=== PATIENT | male | born 1975 | race Caucasian/White ===

== ENCOUNTER 2022-03-01 15:07 | Emergency (ER) | payer OTHER, SELFPAY ==
--- NOTE | ~2022-03-01 | XR_ITS ---
EXAMINATION: XR finger 3rd LT min 2V DATE: 03/01/2022 15:24 INDICATION: Left hand third digit injury. TECHNIQUE: 4 views of left hand third digit were obtained. COMPARISON: Left hand radiographs 02/05/2013 FINDINGS: Bone alignment is normal. No acute fracture. There is an old healed fracture of diaphysis o f fourth metacarpal with 3 screws. 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 IMPRESSION: 1. No acute fracture. Reviewed, dictated and finalized at location E. IMPRESSION: 1. No acute fracture.
[2022-03-01 15:13] VITALS: BP 162/98; PULSE 92; RESP 16; TEMP 36.8; O2SAT 100
--- NOTE | 2022-03-01 15:53 | ED.GENADULT ---
HPI - General Adult General Chief complaint: Wound/Laceration Stated complaint: lt finger inj Source: patient Mode of arrival: ambulatory Limitations: no limitations History of Present Illness HPI narrative: Patient presents for evaluation of a wound to the third digit of his left hand. Using a router just prior to arrival when he sustained an avulsion injury. He believes his symptoms are limited to the soft tissues. He reports 3/10 pain in affected digit. No loss of ROM. No paresthesias. He is right hand dominant. He is not diabetic. He does not smoke. He has not tried any therapies to assist with his symptoms. Last tetanus within the past year. Related Data Home Medications Medication Instructions Recorded Confirmed ibuprofen 200 mg tablet 200 mg PO Q6H PRN 05/01/21 05/01/21 Allergies Allergy/AdvReac Type Severity Reaction Status Date / Time No Known Allergies Allergy Mild Verified 05/01/21 14:12 Review of Systems Review of Systems: CONSTITUTIONAL: Denies fever, chills, or sweats. EYES: Denies visual changes, redness, or discharge. ENT: Denies rhinorrhea, congestion, sore throat, or otalgia. CARDIOVASCULAR: Denies chest pain, palpitations, or edema. RESPIRATORY: Denies cough or dyspnea. GASTROINTESTINAL: Denies abdominal pain, nausea, vomiting, or diarrhea. GENITOURINARY: Denies dysuria or hematuria. SKIN: Reports wound to third digit of left hand. MUSCULOSKELETAL: Reports pain in third digit of left hand. NEUROLOGIC: Denies headache, numbness, dizziness, or weakness. PSYCHIATRIC: Denies anxiety or depression. [facility] Past Medical History Medical History Environmental allergies Family hx of prostate cancer Family History Family History Mother Family history of hypercholesterolemia Father Family history of hypercholesterolemia Other Cerebrovascular accident Family history of cardiovascular disease Family history of glaucoma Family history of sudden cardiac in sister Hypertension Malignant neoplasm of prostate Social History Social History Smoking status: Never smoker Alcohol intake: current Alcohol use details: socially but rare Substance use: never Living arrangements: with family Gender identity (if verbalized by the patient): Male Sexual Orientation (if Verbalized by the Patient): Straight or Heterosexual Spiritual care concerns: No Exam Narrative: GENERAL: Well-appearing, well-nourished, and in no acute distress. HEAD: Normocephalic, atraumatic. EYES: PERRLA and EOMI. ENT: Nares clear, no rhinorrhea or epistaxis. Mucous membranes moist. Oropharynx without tonsillar hypertrophy exudate or other lesions. Bilateral TMs pearly eddy nonbulging NECK: Supple. No adenopathy or masses. No carotid bruits or JVD CHEST: Clear to auscultation. No respiratory distress. No wheezes rales or rhonchi HEART: Regular rate and rhythm. No murmur heard. Normal peripheral pulses. ABDOMEN: Soft, nontender, nondistended, normal active bowel sounds. EXTREMITIES: Normal range of motion. No edema. SKIN: Approximately 2cm skin avulsion to palmar aspect of distal phalanx of 3rd digit of left hand. Wound bed is red. Bleeding controlled NEURO: No focal deficits. Alert and oriented x3. PSYCH: Normal mood and affect. Course Course Emergency Course: This is a 46-year-old male who presented with complaints of an injury to the third digit of his left hand. UTD on tetanus. X ray with no evidence of fracture or retained foreign body. Digital block was performed with 1% lidocaine without epinephrine. I dressed wound with xeroform,surgicel, another layer of Xeroform and tube gauze. He was provided patient with a splint. He tolerated process well. Advised on wound care. He declined analgesics while here and upon
== END 2022-03-01 15:55 | disposition home or self-care (01) ==
PROVIDERS: Emergency Provider Nurse Practitioner; PCP Family Medicine
DX: S61.203A Unspecified open wound of left middle finger without damage to nail, initial encounter (principal); X58.XXXA Exposure to other specified factors, initial encounter
CPT/HCPCS: 29130; 73140; 99213; G0463

== ENCOUNTER 2023-08-05 09:08 | Outpatient (CLI) | payer OTHER, SELFPAY ==
[2023-08-05 20:16] LABS: Prostate Specific Antigen 0.8 ng/mL (< OR = 4.0)
[2023-08-05 20:30] LABS: Vitamin D 25 Hydroxy 44.2 ng/mL
[2023-08-08 12:29] LABS: Testosterone Free 61.8 pg/mL (46.0-224.0); Testosterone Total 504 ng/dL (250-1100)
== END 2023-08-05 09:09 | disposition home or self-care (01) ==
LOC: ANHGOSHLAB 09:10
PROVIDERS: PCP Family Medicine; Visit Provider Nurse Practitioner Family
DX: R53.83 Other fatigue (principal); Z12.5 Encounter for screening for malignant neoplasm of prostate
CPT/HCPCS: 36415; 82306; 82607; 84153; 84402; 84403; 84443; G0103

== ENCOUNTER 2023-08-31 05:59 | Day surgery (SDC) | payer OTHER, SELFPAY ==
[2023-08-12 09:48] VITALS: BMI 29.5
[2023-08-31 06:26] VITALS: BP 151/106; PULSE 78; RESP 16; TEMP 36.6; O2SAT 95
--- NOTE | 2023-08-31 07:14 | WPDANESEPPF ---
Anes - Initial Pre Proc Eval Procedure: Operation Date: 08/31/23 07:30 Proposed Procedures p Screening Colonoscopy - Yogesh Nayak MD Date/Time: 08/31/23 07:14 Surgeon: Yogesh Nayak MD Pre Op Diagnosis: Neoplasm Screening Patient Data Age: 47 Gender: M Height: 1.78 m Weight: 93.5 kg Last Vital Signs Temp 36.6 C 08/31/23 06:26 Pulse 78 08/31/23 06:26 Resp 16 08/31/23 06:26 BP 151/106 H 08/31/23 06:26 Pulse Ox 95 08/31/23 06:26 O2 Del Method Room Air 08/31/23 06:26 Allergies Allergy/AdvReac Type Severity Reaction Status Date / Time No Known Allergies Allergy Mild Verified 08/31/23 06:27 Home Medications Medication Instructions Recorded Confirmed Type olopatadine 0.6 % nasal spray 2 spray intranasal Q12H #30.5 grams 08/05/23 08/31/23 Rx cetirizine 10 mg tablet (Zyrtec) 10 mg PO DAILY PRN Allergy Symptoms 08/14/23 08/31/23 History Patient hx anesthesia problems: none Family hx anesthesia problems: none Results Review: All pre-operative results and documents have been reviewed as part of the pre-operative evaluation. [facility] Past Medical History Medical History Environmental allergies Family hx of prostate cancer Family History Family History Mother Family history of hypercholesterolemia Father Family history of hypercholesterolemia Grandparent Cerebrovascular accident Grandparent Heart attack Grandparent Heart attack Macular degeneration Grandparent Heart attack Malignant neoplasm of prostate Other Family history of cardiovascular disease Family history of glaucoma Family history of sudden cardiac in sister Hypertension Social History Social History Years smoked: 3 Smoking status: Former smoker Tobacco type: cigarettes Alcohol intake: current Alcohol use details: rare, less than 1 per week Substance use: never Substance use type: does not use Lack of Transportation: No Lack of Food: Never True Current Housing: I Have Housing Concerned About Future Housing: No Difficulty Paying Gas/Electric Bills: No Difficulty Paying for Meds: No Currently Unemployed: No Education: Bachelor's Degree Difficulty w/ Childcare or Family Care: No Living arrangements: with family Gender identity (if verbalized by the patient): Male Sexual Orientation (if Verbalized by the Patient): Straight or Heterosexual Spiritual care concerns: No Anes - Eval Final PreProcedure Day of Procedure 08/31/23 07:14 Patient weight: overweight Heart: regular rate and rhythm Lungs: clear to auscultation Airway: Mallampati scale class III Neurological: alert and oriented Last oral intake: >/= 8 hours ASA classification: II Emergent: no Anesthetic plan: proceed Anesthesia type and monitoring: general GIVS and standard monitoring Results Review: All pre-operative results and documents have been reviewed as part of the pre-operative evaluation. Informed Consent: The patient's anesthetic plan and its attendant risks and benefits were discussed with the patient/family/POA. Questions were solicited and answers provided to the satisfaction of the patient/family/POA.
[2023-08-31] MEDS: LACTATED RINGERS 1,000 ML 150 ML IV CONT (07:29)
--- NOTE | 2023-08-31 07:29 | PM.HPGS ---
History of Present Illness History of Present Illness Consent: Risks, benefits, and alternatives have been discussed and questions answered. Patient agrees to proceed with procedure. Chief complaint: Neoplasm Screening Narrative: Bao Rea is a 47 year old male here for first screening colonoscopy Review of Systems Constitutional: Constitutional: Denies headache(s) and Denies weakness Eyes: Eyes: Denies blurry vision ENT: Reports Normal hearing present, Denies headache(s) and Denies neck pain Cardiovascular: Cardiovascular: Denies chest pain and Denies dyspnea Respiratory: Respiratory: Denies dyspnea Gastrointestinal: Gastrointestinal: Reports no additional gastrointestinal complaints Genitourinary: Genitourinary: Denies dysuria Musculoskeletal: Musculoskeletal: Denies neck pain Integumentary/Breasts: Skin/Breast: Denies dry skin Neurologic: Reports Normal hearing present, Denies headache(s) and Denies weakness Psychiatric: Psychiatric: Denies anxiety Endocrine: Endocrine: Denies change in body appearance Hematologic/Lymphatic: Hematologic/Lymphatic: Denies easy bleeding Allergic/Immunologic: Allergic/Immunologic: Denies urticaria PMFSH Past Medical History Medical History (Updated 08/31/23 @ 07:29 by Yogesh Nayak MD) Colon cancer screening Environmental allergies Family hx of prostate cancer Family History Family History Mother Family history of hypercholesterolemia Father Family history of hypercholesterolemia Grandparent Cerebrovascular accident Grandparent Heart attack Grandparent Heart attack Macular degeneration Grandparent Heart attack Malignant neoplasm of prostate Other Family history of cardiovascular disease Family history of glaucoma Family history of sudden cardiac in sister Hypertension Social History Social History Years smoked: 3 Smoking status: Former smoker Tobacco type: cigarettes Alcohol intake: current Alcohol use details: rare, less than 1 per week Substance use: never Substance use type: does not use Lack of Transportation: No Lack of Food: Never True Current Housing: I Have Housing Concerned About Future Housing: No Difficulty Paying Gas/Electric Bills: No Difficulty Paying for Meds: No Currently Unemployed: No Education: Bachelor's Degree Difficulty w/ Childcare or Family Care: No Living arrangements: with family Gender identity (if verbalized by the patient): Male Sexual Orientation (if Verbalized by the Patient): Straight or Heterosexual Spiritual care concerns: No Meds Home Medications and Allergies Home Medications Medication Instructions Recorded Confirmed Type olopatadine 0.6 % nasal spray 2 spray intranasal Q12H #30.5 grams 08/05/23 08/31/23 Rx cetirizine 10 mg tablet (Zyrtec) 10 mg PO DAILY PRN Allergy Symptoms 08/14/23 08/31/23 History Allergies Allergy/AdvReac Type Severity Reaction Status Date / Time No Known Allergies Allergy Mild Verified 08/31/23 06:27 Vital Signs Vital Signs - 24 hr 08/31/23 06:26 Temperature 98 F Pulse Rate 78 Respiratory Rate 16 Blood Pressure 151/106 H Pulse Oximetry 95 Oxygen Delivery Room Air Exam Const: General: comfortable and no acute distress HENMT: Face/Nose/Sinus: Normal nares present Eyes: General: appearance normal, both eyes and all related structures Neck: Neck: no JVD Resp: Auscultation: clear to auscultation bilaterally Cardio: Rate: regular rate Rhythm: regular rhythm GI: Inspection: non-distended GI Palp: Yes Soft to palpation Skin: General skin exam: normal color Neuro: General: gait normal Speech: normal speech Extrem: General: normal to inspection Psych: Mental Status: mental status grossly normal Assessme
--- NOTE | 2023-08-31 07:31 | SUR.PREOP ---
Pt BP 151/106 in pre-op, Dr. Benjamin (anesthesia) notified. No new orders at this time.
[2023-08-31 07:56] VITALS: BP 127/84; PULSE 65; RESP 16; O2SAT 98
[2023-08-31 08:06] VITALS: BP 119/88; PULSE 62; RESP 16; O2SAT 100
--- NOTE | 2023-08-31 08:13 | WPDANESPN ---
Anes - Prog Note Post-Op Date/Time: 08/31/23 08:13 Cardiovascular status: normal Respiratory status: normal Airway patency: baseline Mental status: baseline Post-Op hydration status: normal Vital Signs: Last Vital Signs Temp 36.6 C 08/31/23 06:26 Pulse 62 08/31/23 08:06 Resp 16 08/31/23 08:06 BP 119/88 08/31/23 08:06 Pulse Ox 100 08/31/23 08:06 O2 Del Method Room Air 08/31/23 08:06 Pain Score (VAS): 0 I/O: Intake & Output 08/30/23 08/31/23 08/31/23 23:59 07:59 15:59 Intake Total 500 Balance 500 Patient Feedback: Patient satisfied with anesthetic care.
[2023-08-31 08:16] VITALS: BP 128/81; PULSE 60; RESP 16; O2SAT 100
--- NOTE | 2023-08-31 08:29 | SUR.PHASEII ---
0825; PT AWAKE AND ALERT. DRESSED AND WAITING FOR RIDE.
== END 2023-08-31 08:40 | disposition home or self-care (01) ==
PROVIDERS: PCP Family Medicine; Visit Provider Internal Medicine Gastroenterology
PROC: 0DJD8ZZ Inspection of Lower Intestinal Tract, Via Natural or Artificial Opening Endoscopic (ICD-10-PCS; CPT 45378; principal; 2023-08-31 07:30)
DX: Z12.11 Encounter for screening for malignant neoplasm of colon (principal); D12.4 Benign neoplasm of descending colon; D12.5 Benign neoplasm of sigmoid colon; K64.8 Other hemorrhoids
CPT/HCPCS: 45385

== ENCOUNTER 2023-08-31 07:00 | Outpatient (NON) | payer OTHER, SELFPAY | END 2023-08-31 07:01 | disposition home or self-care (01) | PROVIDERS: PCP Family Medicine; Visit Provider Internal Medicine Gastroenterology | DX: Z12.11 Encounter for screening for malignant neoplasm of colon (principal) | CPT/HCPCS: 88305 ==

== ENCOUNTER → 2023-09-15 14:25 | Outpatient (CLI) | payer OTHER, SELFPAY ==
--- NOTE | ~2023-09-15 | XR_ITS ---
XR_[id number]_CR DATE: 09/15/2023 14:35 INDICATION: Left neck pain, left arm pain for 2 weeks. No injury. TECHNIQUE: AP, open-mouth, odontoid, lateral and swimmer views COMPARISON: None FINDINGS: There is straightening of the cervical curvature which may be due to muscle spasm. C1 and C2 are normally aligned and the odontoid process is intact. No fracture or dislocation or lock ed facet or prevertebral soft tissue swelling is detected. Cervical interspaces are relatively preser chalino. There is IMPRESSION: Straightening of the cervical spine Reviewed, dictated and finalized at [facility]. Reviewed, dictated and finalized at location A.
== END ==
PROVIDERS: PCP Family Medicine; Visit Provider Physician Assistant
DX: M54.12 Radiculopathy, cervical region (principal)
CPT/HCPCS: 72040

== ENCOUNTER 2023-10-13 08:48 | Outpatient (CLI) | payer OTHER, SELFPAY ==
--- NOTE | 2023-11-03 13:44 | WPDHOMESLEEP ---
Sleep Study - Home Unattended Date of Study: 10/13/23 Ordering Provider: RAJENDRA Braxton-Shantelle Interpreting Provider: Nicky Lopez, DO Home Sleep Study Type: Watch PAT Height: 1.78 m Weight: 92.986 kg Body Mass Index: 29.4 Neck Circumference (inches): 15.5 [place]: 11 Reason for Sleep Study Snoring, daytime hypersomnia Sleep History The patient is a 48-year-old male with seasonal allergies, chronic neck pain and history of tobacco use that had a sleep study ordered by his primary care for evaluation of sleep. 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 He denies awakening from sleep short of breath. He rarely awakens at night with heartburn, belching or cough. He frequently snores and is frequently loud enough that others complain. He rarely has trouble sleeping when he has a cold. He denies waking up gasping for air throughout the night. He denies having breathing problems at night observed by himself or others. He occasionally sweats excessively at night. He denies having heart palpitations or irregular heartbeats during the night. He rarely falls asleep during the day and rarely falls asleep while driving. He denies sleep paralysis and cataplexy. He rarely has trouble at school or work due to sleepiness. He rarely experiences vivid dreamlike scenes upon awakening or falling asleep. He denies feeling afraid of going to sleep. He denies having nightmares. He rarely remembers his dreams. He rarely has thoughts racing through his mind. He rarely feels sad, depressed or anxious. He occasionally has muscular tension. He frequently notices parts of his body jerk. He occasionally kicks during the night. He denies having crawling and aching feelings in his legs but rarely has leg pain during the night. He denies grinding teeth during sleep and denies awakening with morning jaw pain. He is occasionally bothered by pain during the day and occasionally awakened by pain during the night. He frequently wakes up feeling stiff in the morning. He rarely wakes up with sore or achy muscles. He occasionally wakes up with pain in the neck, spine or other joints. He goes to bed at 10:00 p.m. on weekdays and at 11:00 p.m. on the weekends. It takes him a few minutes to fall asleep. He wakes up 1-2 times throughout the night to urinate and is able to fall back asleep within a few minutes. He wakes up at 5:00 a.m. on weekdays and at 7:00 a.m. on the weekends. He typically gets 6-7 hours of sleep per night. He will stay in bed for a few minutes after waking up in the morning. He currently lives with his and 15-year-old child. He denies consuming any caffeinated beverages within 2 hours of bedtime. He denies engaging in physical exercise before bedtime. He will read and watch television before falling asleep. He denies taking naps in the afternoon or the evening. He consumes 64 oz of diet Pepsi per day. He quit smoking cigarettes years ago. He denies alcohol and recreational drug use. [facility] Past Medical History Medical History Colon cancer screening Environmental allergies Family hx of prostate cancer Tubular adenoma of colon Family History Family History Mother Family history of hypercholesterolemia Father Family history of hypercholesterolemia Grandparent Cerebrovascular accident Grandparent Heart attack Grandparent Heart attack Macular degeneration Grandparent Heart attack Malignant neoplasm of prostate Other Family history of cardiovascular disease Family history of glaucoma Family history of sudden cardiac in sister Hypertension Social History Social History Years smoked: 3 Smoking status: Former smoker Tobacco type: cigarettes Alcohol intake: current Alcoho
[2023-11-03 13:51] VITALS: BMI 29.4
== END 2023-10-14 08:00 | disposition home or self-care (01) ==
LOC: ANHCSM 08:49
PROVIDERS: PCP Family Medicine; Visit Provider Nurse Practitioner Family
DX: G47.9 Sleep disorder, unspecified (principal); R53.83 Other fatigue
CPT/HCPCS: 95800

== ENCOUNTER 2023-11-09 09:03 | Outpatient (CLI) | payer OTHER, SELFPAY ==
[2023-12-01 10:57] VITALS: BMI 29.4
--- NOTE | 2023-12-01 10:57 | WPDSLEEPSTUD ---
Sleep Study Date of Study: 11/09/23 Ordering Provider: Robert Alcazar MD Interpreting Physician: Nicky Lopez, Sleep Study Type: Polysomnogram Height: 1.78 m Weight: 92.986 kg Body Mass Index: 29.4 Neck Circumference (inches): 16 [place]: 10 Reason for Sleep Study Snoring, daytime hypersomnia Sleep History The patient is a 48-year-old male with seasonal allergies, chronic neck pain and history of tobacco use that had a sleep study ordered by his primary care for evaluation of sleep.? 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 He denies awakening from sleep short of breath.? He rarely awakens at night with heartburn, belching or cough.? He frequently snores and is frequently loud enough that others complain.? He rarely has trouble sleeping when he has a cold.? He denies waking up gasping for air throughout the night.? He denies having breathing problems at night observed by himself or others.? He occasionally sweats excessively at night.? He denies having heart palpitations or irregular heartbeats during the night.? He rarely falls asleep during the day and rarely falls asleep while driving.? He denies sleep paralysis and cataplexy.? He rarely has trouble at school or work due to sleepiness.? He rarely experiences vivid dreamlike scenes upon awakening or falling asleep.? He denies feeling afraid of going to sleep.? He denies having nightmares.? He rarely remembers his dreams.? He rarely has thoughts racing through his mind.? He rarely feels sad, depressed or anxious.? He occasionally has muscular tension.? He frequently notices parts of his body jerk.? He occasionally kicks during the night.? He denies having crawling and aching feelings in his legs but rarely has leg pain during the night.? He denies grinding teeth during sleep and denies awakening with morning jaw pain.? He is occasionally bothered by pain during the day and occasionally awakened by pain during the night.? He frequently wakes up feeling stiff in the morning.? He rarely wakes up with sore or achy muscles.? He occasionally wakes up with pain in the neck, spine or other joints.? He goes to bed at 10:00 p.m. on weekdays and at 11:00 p.m. on the weekends.? It takes him a few minutes to fall asleep.? He wakes up 1-2 times throughout the night to urinate and is able to fall back asleep within a few minutes.? He wakes up at 5:00 a.m. on weekdays and at 7:00 a.m. on the weekends.? He typically gets 6-7 hours of sleep per night.? He will stay in bed for a few minutes after waking up in the morning.? He currently lives with his and 15-year-old child.? He denies consuming any caffeinated beverages within 2 hours of bedtime.? He denies engaging in physical exercise before bedtime.? He will read and watch television before falling asleep.? He denies taking naps in the afternoon or the evening.? He consumes 64 oz of diet Pepsi per day.? He quit smoking cigarettes years ago.? He denies alcohol and recreational drug use. [facility] Past Medical History Medical History Colon cancer screening Environmental allergies Family hx of prostate cancer Tubular adenoma of colon Family History Family History Mother Family history of hypercholesterolemia Father Family history of hypercholesterolemia Grandparent Cerebrovascular accident Grandparent Heart attack Grandparent Heart attack Macular degeneration Grandparent Heart attack Malignant neoplasm of prostate Other Family history of cardiovascular disease Family history of glaucoma Family history of sudden cardiac in sister Hypertension Social History Social History Years smoked: 3 Smoking status: Former smoker Tobacco type: cigarettes Alcohol intake: current Alcohol use details: janel villaseñor
== END 2023-11-10 05:50 | disposition home or self-care (01) ==
LOC: ANHCSM 09:06
PROVIDERS: PCP Family Medicine; Visit Provider Family Medicine
DX: G47.9 Sleep disorder, unspecified (principal); R53.83 Other fatigue; G47.61 Periodic limb movement disorder
CPT/HCPCS: 95810

== ENCOUNTER 2024-01-18 12:49 | Outpatient (CLI) | payer OTHER, SELFPAY | END 2024-01-18 12:50 | disposition home or self-care (01) | LOC: ANHGOSHLAB 12:50 | PROVIDERS: PCP Family Medicine; Visit Provider Family Medicine | DX: G25.81 Restless legs syndrome (principal) | CPT/HCPCS: 36415; 82728 ==